=== PATIENT | female | born 1930 | race Caucasian/White ===

== ENCOUNTER 2017-04-20 14:16 | Outpatient (CLI) | payer MEDICARE, OTHER ==
[2017-04-20 20:15] LABS: FREE T4 (FREE THYROXINE) 0.8 ng/dL (0.58-1.64)
[2017-04-20 20:19] LABS: TOTAL T3 0.91 ng/mL (0.87-1.78)
[2017-04-20 20:25] LABS: CHOL/HDL RATIO 3.3 (<4.4); CHOLESTEROL 194 mg/dL; HDL CHOLESTEROL 59 mg/dL; LDL CHOLESTEROL,CALCULATED 117 mg/dL; VLDL CHOLESTEROL 18 mg/dL
== END 2017-04-20 14:17 | disposition home or self-care (01) ==
LOC: LAB.F 14:16
PROVIDERS: ATTEND Internal Medicine
DX: R21 Rash and other nonspecific skin eruption (principal)
CPT/HCPCS: 36415; 80053; 80061; 84439; 84480

== ENCOUNTER 2018-02-18 16:51 | Outpatient (CLI) | payer MEDICARE, OTHER ==
--- NOTE | 2018-02-20 00:48 | XRAY Report ---
Reason: CHRONIC COUGH Procedure Date: 02/18/2018 Accession Number: [id number] / [id number] Procedure: XR - Chest 2 View X-Ray CPT Code: 47319 FULL RESULT: EXAM: CHEST RADIOGRAPHY EXAM DATE: 02/18/2018 05:19 PM. CLINICAL HISTORY: CHRONIC COUGH. COMPARISON: XR CHEST PA AND LAT 07/26/2008 3:02 PM. TECHNIQUE: 2 views. FINDINGS: Lungs/Pleura: Mild left base probable scarring, unchanged. No consolidation, pleural effusion or pneumothorax. Hyperinflated lungs again noted with flattened diaphragm. Mediastinum: Heart and mediastinal contours are unremarkable. IMPRESSION: No acute cardiopulmonary disease seen. Left base probable scarring, unchanged. Hyperinflated lungs, could be due to COPD or age-related RADIA
== END 2018-02-18 16:52 | disposition home or self-care (01) ==
LOC: DI 16:51
PROVIDERS: ATTEND Nurse Practitioner Family
DX: R05 Cough (principal)
CPT/HCPCS: 71046

== ENCOUNTER 2018-08-04 08:33 | Day surgery (SDC) | payer MEDICARE, OTHER ==
[~2018-08-04 08:33] MED LIST: CYCLOPENTOLATE 1% OPHTH DROPS 2 ML ONE; KETOROLAC 0.45% OPHTH DROPS ONE; PHENYLEPHRINE 2.5% OPHTH 2 ML DROPS ONE; PROPARACAINE 0.5% OPHTH DROPS 15 ML ONE
[2018-08-04] MEDS ORDERED: LACTATED RINGERS 500 ML IV ONE (08:35)
[2018-08-04] MEDS ORDERED: PROPARACAINE 0.5% OPHTH DROPS 15 ML RIGHTEYE ONE ×2 (08:50→09:44)
[2018-08-04] MEDS ORDERED: PHENYLEPHRINE 2.5% OPHTH 2 ML DROPS RIGHTEYE ONE (08:50)
[2018-08-04] MEDS ORDERED: CYCLOPENTOLATE 1% OPHTH DROPS 2 ML RIGHTEYE ONE (08:50)
[2018-08-04] MEDS ORDERED: KETOROLAC 0.45% OPHTH DROPS RIGHTEYE ONE (08:50)
--- NOTE | 2018-08-04 09:04 | ANESTHESIA ---
Pre-Anesthesia VS, & Labs - Diagnosis Right senile combined cataract - Procedure Right phaco with IOL implant Vital Signs: Temp Pulse Resp BP Pulse Ox 36.1 C L 65 18 153/64 H 96 08/04/18 08:41 08/04/18 08:41 08/04/18 08:41 08/04/18 08:41 08/04/18 08:41 Height 5 ft Weight (kg) 72 kg - NPO >8 hours (Cup of coffee at 0730) - Is Patient ?: No - Lab Results Lab results reviewed: No Home Medications and Allergies Celecoxib [Celebrex] 200 mg PO DAILY 01/15/16 Gabapentin 300 mg PO BID 01/15/16 Levothyroxine [Synthroid] 50 mcg PO QDAC 01/15/16 Losartan [Cozaar] 100 mg PO DAILY 01/15/16 Rosuvastatin Calcium [Crestor] 5 mg PO ONCE 01/15/16 Allergies/Adverse Reactions: Allergies Allergy/AdvReac Type Severity Reaction Status Date / Time codeine Allergy Respiratory Verified 04/21/17 14:31 Penicillins Allergy Hives Verified 04/21/17 14:31 Sulfa (Sulfonamide Allergy Rash Verified 08/03/18 13:00 Antibiotics) Anes History & Medical History - Anesthetic History Anesthesia Complications: reports: No previous complications Family history of Anesthesia Complications: Denies Family history of Malignant Hyperthermia: Denies - Medical History Cardiovascular: reports: Hypertension, High cholesterol, Other Pulmonary: reports: Pneumonia Gastrointestinal: reports: None Urinary: reports: Incontinence Neuro: reports: None Musculoskeletal: reports: Gout, Chronic back pain, Other Endocrine/Autoimmune: reports: HyPOthyroidism Blood Disorders: reports: Anemia Skin: reports: Herpes zoster Smoking Status: Former smoker Psychosocial: reports: No issues indicated - Surgical History General: Cholecystectomy Eyes Ears Nose Throat (EENT): Tonsil/Adenoidectomy Gynecologic: Tubal ligation Orthopedic: Knee replacement Exam General: Alert, Oriented x3 Mouth Opening: Greater than 4 Fingerbreadths Neck Mobility: Normal Mallampati classification: I Thyromental Distance: greater than 6 cm Respiratory: Lungs clear Cardiovascular: Regular rate Neurological: Normal speech Mental/Cognitive Status: Alert/Oriented X3 Cognitive Status: Within normal limits Plan Anesthesia Type: MAC Consent for Procedure(s) Verified and Reviewed: Yes Code Status: Attempt Resuscitation ASA classification: 2-Mild systemic disease Is this case an emergency?: No
[2018-08-04] MEDS ORDERED: TIMOLOL 0.5% OPHTH DROPS RIGHTEYE ONE (09:44)
[2018-08-04] MEDS ORDERED: CHONDR SULF/HYALURONATE SYRINGE IO ONE (09:44)
[2018-08-04] MEDS ORDERED: EPINEPHrine 1 MG/ML AMP IVP ONE (09:44)
[2018-08-04] MEDS ORDERED: TRIAMCIN/MOXIFLOX OPHTHALMIC 0.6 ML VIAL IO ONE (09:44)
[2018-08-04] MEDS ORDERED: BSS/LIDOCAINE/EPINEPHRINE 1 ML SYRINGE IO ONE (09:44)
[2018-08-04] MEDS ORDERED: BRIMONIDINE 0.2% OPHTH DROPS 5 ML OPTH ONE (09:44)
[2018-08-04] MEDS ORDERED: MIDAZOLAM 2 MG/2 ML VIAL IVP ONE (09:45)
[2018-08-04] MEDS ORDERED: fentaNYL 100 MCG/2 ML VIAL IVP ONE (09:45)
[2018-08-04] MEDS ORDERED: VANCOMYCIN OPHTHALMI 8MG/0.8ML 8 MG/0.8 ML SYRINGE IO ONE (09:48)
[2018-08-04 09:58] VITALS: BP 111/56
--- NOTE | 2018-08-04 10:54 | OPERATIVE REPORT ---
DATE OF SERVICE: 08/04/2018 Physician: Gordon Jurado MD PREOPERATIVE DIAGNOSIS: Visually significant cataract, right eye. This was her first cataract surge ry. POSTOPERATIVE DIAGNOSIS: Visually significant cataract, right eye. This was her first cataract surg judith. DESCRIPTION OF PROCEDURE: Phacoemulsification with posterior chamber intraocular lens implant, right eye. SURGEON: Gordon Jurado MD ANESTHESIA: Monitored anesthesia care. COMPLICATIONS: None. OPERATIVE INDICATIONS: This is an 87-year-old woman with progressive vision loss in the right eye du e to 2+ nuclear sclerotic and 3+ cortical cataract. Best corrected visual acuity was 20/200, with gl are to hand motion vision in the right eye. Indications for surgery were difficulty reading, difficu lty seeing words, closed captions or game scores on TV, difficulty driving in low light or at night, and difficulty driving at night because of headlights from other vehicles. She was consented at [facility] concerning the risks and benefits of cataract surgery, after which she expressed a desire to proce ed with surgery. OPERATIVE PROCEDURE: The patient was taken to OR #3 and placed under monitored anesthesia care. A s urgical timeout was conducted confirming correct patient, correct procedure, and correct surgical sit e. She was given topical anesthesia, prepped and draped in the usual sterile fashion. The eye was e ntered at the 12 and 9 o'clock positions. Intracameral Shugarcaine was injected into the anterior ch tuan, followed by Viscoat. A continuous-tear curvilinear capsulorrhexis was performed. The nucleus was hydrodissected and phacoemulsified. The cortex was evacuated using automated infusion and aspir ation. Provisc was injected into the capsular bag, and a 22.0 diopter intraocular lens inserted in t he bag. Approximately 0.8 mL mixture of triamcinolone moxifloxacin and vancomycin was injected subco njunctivally in the superior quadrant for infection and inflammation prophylaxis. I and A was used t o evacuate the viscoelastic materials. The eye was inflated to physiologic pressure using balanced s alt solution and found to be watertight. The patient was taken from the operating room in good condi tion and given postoperative instructions. TD: 08/04/2018 10:26
== END 2018-08-04 08:34 | disposition home or self-care (01) ==
LOC: SDS 08:33
PROVIDERS: ATTEND Ophthalmology
PROC: 08RJ3JZ Replacement of Right Lens with Synthetic Substitute, Percutaneous Approach (ICD-10-PCS; principal; 2018-08-04 09:30)
DX: H25.811 Combined forms of age-related cataract, right eye (principal); I10 Essential (primary) hypertension; E03.9 Hypothyroidism, unspecified; H35.81 Retinal edema
CPT/HCPCS: 66984; A9270; J3490; V2632

== ENCOUNTER 2018-09-15 07:53 | Day surgery (SDC) | payer MEDICARE, OTHER ==
[~2018-09-15 07:53] MED LIST changes: +BRIMONIDINE 0.2% OPHTH DROPS 5 ML ONE; +BSS/LIDOCAINE/EPINEPHRINE 1 ML SYRINGE ONE; +TIMOLOL 0.5% OPHTH DROPS ONE; +TRIAMCIN/MOXIFLOX OPHTHALMIC 0.6 ML VIAL IO ONE; +VANCOMYCIN OPHTHALMI 8MG/0.8ML 8 MG/0.8 ML SYRINGE IO ONE
[2018-09-15] MEDS ORDERED: LACTATED RINGERS 500 ML IV ONE (08:03)
--- NOTE | 2018-09-15 08:10 | ANESTHESIA ---
Pre-Anesthesia VS, & Labs - Diagnosis L senile combined cataract - Procedure L extraction cataract with IOL Height 5 ft - NPO >8 hours Last Fluid Intake: 1 cup coffee @0630 - Is Patient ?: No Home Medications and Allergies Celecoxib [Celebrex] 200 mg PO DAILY 01/15/16 Gabapentin 300 mg PO BID 01/15/16 Levothyroxine [Synthroid] 50 mcg PO QDAC 01/15/16 Losartan [Cozaar] 100 mg PO DAILY 01/15/16 Rosuvastatin Calcium [Crestor] 5 mg PO ONCE 01/15/16 Allergies/Adverse Reactions: Allergies Allergy/AdvReac Type Severity Reaction Status Date / Time codeine Allergy Respiratory Verified 04/21/17 14:31 Penicillins Allergy Hives Verified 04/21/17 14:31 Sulfa (Sulfonamide Allergy Rash Verified 08/03/18 13:00 Antibiotics) Anes History & Medical History - Anesthetic History Anesthesia Complications: reports: No previous complications Family history of Anesthesia Complications: Denies Family history of Malignant Hyperthermia: Denies - Medical History Cardiovascular: reports: Hypertension, High cholesterol, Other Pulmonary: reports: Pneumonia Gastrointestinal: reports: None Urinary: reports: Incontinence Neuro: reports: None Musculoskeletal: reports: Gout, Chronic back pain, Other Endocrine/Autoimmune: reports: HyPOthyroidism Blood Disorders: reports: Anemia Skin: reports: Herpes zoster Smoking Status: Former smoker - Surgical History General: Cholecystectomy Eyes Ears Nose Throat (EENT): Tonsil/Adenoidectomy Gynecologic: Tubal ligation Orthopedic: Knee replacement Exam General: Alert, Oriented x3, Cooperative Dental: WNL Mouth Openin Fingerbreadth Neck Mobility: Normal Mallampati classification: I Thyromental Distance: 4-6 cm Respiratory: Lungs clear Cardiovascular: Regular rate Neurological: Normal speech Mental/Cognitive Status: Alert/Oriented X3 Plan Anesthesia Type: MAC Consent for Procedure(s) Verified and Reviewed: Yes Code Status: Attempt Resuscitation ASA classification: 2-Mild systemic disease Is this case an emergency?: No
[2018-09-15] MEDS ORDERED: KETOROLAC 0.45% OPHTH DROPS LEFTEYE ONE (08:15)
[2018-09-15] MEDS ORDERED: CYCLOPENTOLATE 1% OPHTH DROPS 2 ML LEFTEYE ONE (08:15)
[2018-09-15] MEDS ORDERED: PROPARACAINE 0.5% OPHTH DROPS 15 ML LEFTEYE ONE ×2 (08:15→08:57)
[2018-09-15] MEDS ORDERED: PHENYLEPHRINE 2.5% OPHTH 2 ML DROPS LEFTEYE ONE (08:15)
[2018-09-15] MEDS ORDERED: BRIMONIDINE 0.2% OPHTH DROPS 5 ML OPTH ONE (08:56)
[2018-09-15] MEDS ORDERED: BSS/LIDOCAINE/EPINEPHRINE 1 ML SYRINGE IO ONE (08:56)
[2018-09-15] MEDS ORDERED: TIMOLOL 0.5% OPHTH DROPS OPTH ONE (08:56)
[2018-09-15] MEDS ORDERED: CHONDR SULF/HYALURONATE SYRINGE IO ONE (08:56)
[2018-09-15] MEDS ORDERED: EPINEPHrine 1 MG/ML AMP IVP ONE (08:56)
[2018-09-15] MEDS ORDERED: VANCOMYCIN OPHTHALMI 8MG/0.8ML 8 MG/0.8 ML SYRINGE IO ONE (09:00)
[2018-09-15] MEDS ORDERED: TRIAMCIN/MOXIFLOX OPHTHALMIC 0.6 ML VIAL IO ONE (09:00)
[2018-09-15] MEDS ORDERED: MIDAZOLAM 2 MG/2 ML VIAL IVP ONE (09:00)
[2018-09-15 09:37] VITALS: BP 90/41
--- NOTE | 2018-09-15 10:45 | OPERATIVE REPORT ---
DATE OF SERVICE: 09/15/2018 Physician: Gordon Jurado MD PREOPERATIVE DIAGNOSIS: Visually significant cataract, left eye. Cataract surgery was performed on the right eye on 08/04/2018. POSTOPERATIVE DIAGNOSIS: Visually significant cataract, left eye. Cataract surgery was performed on the right eye on 08/04/2018. PROCEDURE: Phacoemulsification with posterior chamber intraocular lens implant, left eye. SURGEON: Gordon Jurado MD ANESTHESIA: Monitored anesthesia care. COMPLICATIONS: None. OPERATIVE INDICATIONS: This is an 87-year-old woman with progressive vision loss in the left eye due to 2+ nuclear sclerotic, 2-3+ cortical and vacuole cataract. Best corrected visual acuity was 20/40 with glare to 20/630 in the left eye. Indications for surgery are overall decrease in vision, diffi culty reading and difficulty with glare or bright lights in any situation. She was consented at [facility] concerning risks and benefits of cataract surgery, after which she expressed a desire to proceed w [facility] surgery. OPERATIVE PROCEDURE: The patient was taken into OR #3 and placed under monitored anesthesia care. A surgical timeout was conducted confirming the correct patient, correct procedure, and correct surgic al site. She was given topical anesthesia, and then prepped and draped in the usual sterile fashion. The eye was entered at the 6 and 3 o'clock positions. Intracameral Shugarcaine was injected into t he anterior chamber, followed by Viscoat. A continuous-tear curvilinear capsulorrhexis was performed . The nucleus was hydrodissected and phacoemulsified. The cortex was evacuated using automated infu karla and aspiration. Provisc was injected into the capsular bag, and a 21.5 diopter intraocular lens inserted in the bag. Approximately 0.8 mL mixture of triamcinolone, moxifloxacin and vancomycin was then injected subconjunctivally in the superior quadrant for infection and inflammation prophylaxis. I and A was used to evacuate the viscoelastic material. The eye was inflated to physiologic pressu re using balanced salt solution and found to be watertight. The patient was taken from the operating room in good condition and given postoperative instructions. TD: 09/15/2018 09:21
== END 2018-09-15 07:54 | disposition home or self-care (01) ==
LOC: SDS 07:53
PROVIDERS: ATTEND Ophthalmology
PROC: 08RK3JZ Replacement of Left Lens with Synthetic Substitute, Percutaneous Approach (ICD-10-PCS; principal; 2018-09-15 11:00)
DX: H25.812 Combined forms of age-related cataract, left eye (principal); H35.372 Puckering of macula, left eye; I10 Essential (primary) hypertension; E78.00 Pure hypercholesterolemia, unspecified; Z87.01 Personal history of pneumonia (recurrent); R32 Unspecified urinary incontinence; M10.9 Gout, unspecified; G89.29 Other chronic pain; M54.9 Dorsalgia, unspecified; E03.9 Hypothyroidism, unspecified; D64.9 Anemia, unspecified; Z87.891 Personal history of nicotine dependence; Z96.652 Presence of left artificial knee joint
CPT/HCPCS: 66984; A9270; J3490; V2632

== ENCOUNTER 2019-02-24 15:45 | Outpatient (CLI) | payer MEDICARE, OTHER ==
--- NOTE | 2019-02-25 18:34 | XRAY Report ---
Reason: ACUTE BRONCHITIS,UNSPECIFIED Procedure Date: 02/24/2019 Accession Number: [id number] / [id number] Procedure: XR - Chest 2 View X-Ray CPT Code: 88925 Final Report FULL RESULT: EXAM: CHEST RADIOGRAPHY EXAM DATE: 02/24/2019 04:02 PM. CLINICAL HISTORY: ACUTE BRONCHITIS,UNSPECIFIED. COMPARISON: CHEST 2 VIEW 02/18/2018 5:10 PM. TECHNIQUE: 2 views. FINDINGS: Lungs/Pleura: No focal opacities evident. Left basilar scarring, stable. No pleural effusion. No pneumothorax. Mediastinum: Stable cardiomediastinal silhouette. Other: None. IMPRESSION: No evidence for acute cardiothoracic process. RADIA
== END 2019-02-24 15:46 | disposition home or self-care (01) ==
LOC: DI 15:45
PROVIDERS: ATTEND Nurse Practitioner Family
DX: J20.9 Acute bronchitis, unspecified (principal)
CPT/HCPCS: 71046

== ENCOUNTER 2020-01-31 11:35 | Outpatient (CLI) | payer MEDICARE, OTHER | END 2020-01-31 11:36 | disposition home or self-care (01) | LOC: COV 11:35 | PROVIDERS: ATTEND Family Medicine | DX: R05 Cough (principal); R06.02 Shortness of breath; R09.81 Nasal congestion; Z20.828 Contact with and (suspected) exposure to other viral communicable diseases ==

== ENCOUNTER 2020-02-07 14:45 | Outpatient (CLI) | payer MEDICARE, OTHER ==
--- NOTE | 2020-02-07 16:06 | XRAY Report ---
PROCEDURE: Chest 2 View X-Ray INDICATIONS: COUGH TECHNIQUE: 2 view(s) of the chest. COMPARISON: 2 view chest 02/24/2019 reviewed. FINDINGS: Surgical changes and devices: None. Lungs and pleura: No pleural effusions or pneumothorax. Lungs are abnormal with a chronic interstit ial prominence bilaterally, and lateral to the middle third of the right hilum there is a worrisome r adiodensity that appears rounded, measuring approximately 2.3 x 2.8 cm, and potentially a manifestati on of perihilar neoplasm.. Mediastinum: Mediastinal contours are normal. Heart size is normal. Bones and chest wall: No suspicious bony abnormalities. Soft tissues appear unremarkable. IMPRESSION: Possible mass lesion immediately lateral to the middle third of the right hilum, measuri ng approximately 2.3 x 2.8 cm, in the setting of interstitial prominence that appears chronic and per haps smoking-related. Follow-up CT scanning with contrast would be recommended for most accurate asse ssment. Reviewed by: Yrn Torres MD on 02/07/2020 4:05 PM PDT Approved by: Yrn Torres MD on 02/07/2020 4:05 PM PDT Station ID: [id number]
== END 2020-02-07 14:46 | disposition home or self-care (01) ==
LOC: DI 14:45
PROVIDERS: ATTEND Nurse Practitioner Family
DX: R91.8 Other nonspecific abnormal finding of lung field (principal)
CPT/HCPCS: 71046

== ENCOUNTER 2020-09-17 16:22 | Outpatient (CLI) | payer MEDICARE, OTHER | END 2020-09-17 16:23 | disposition home or self-care (01) | LOC: COV 16:22 | PROVIDERS: ATTEND Psychiatry & Neurology Neurology | DX: Z01.812 Encounter for preprocedural laboratory examination (principal); Z20.822 Contact with and (suspected) exposure to COVID-19 ==

== ENCOUNTER 2020-10-23 14:45 | Outpatient (CLI) | payer MEDICARE, OTHER ==
--- NOTE | 2020-10-23 15:59 | XRAY Report ---
PROCEDURE: Foot 3 View LT INDICATIONS: PAIN EDEMA FOREFOOT L FOOT TECHNIQUE: 3 views of the foot were acquired. COMPARISON: None FINDINGS: Bones: No fractures or dislocations. No suspicious bony lesions. The bones are demineralized. The great toe interphalangeal joint has degenerative changes with osteophytes. There are periarticular ca lcifications medial to the great toe interphalangeal joint and metacarpophalangeal joint. Soft tissues: No tibiotalar joint effusion. Achilles tendon appears normal. 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 Reviewed by: Bhaskar Mixon on 10/23/2020 3:58 PM PDT Approved by: Bhaskar Mixon on 10/23/2020 3:58 PM PDT Station ID: [id number]
== END 2020-10-23 14:46 | disposition home or self-care (01) ==
LOC: DI 14:45
PROVIDERS: ATTEND Podiatrist
DX: M19.072 Primary osteoarthritis, left ankle and foot (principal)